=== PATIENT | male | born 1975 | race Caucasian/White ===

== ENCOUNTER 2017-05-12 06:49 | Day surgery (SDC) | payer OTHER ==
[~2017-05-12] VITALS: Ht 180.3 cm; Wt 136.7 kg
[~2017-05-12 06:49] MED LIST: ALBIPROI; ALBU90OI; ALBU90OI6 INH; ALBU90OI61 INH; AZIT250 PO; BUDE200IP INH; CYCL10 PO; DIAZ5 PO; DICL25ER PO; DULO60 PO; Desyrel50 MG; EPIN.3I IM; FLUSAL2505; FLUT44OIA; GABA300 PO; HYDACE10B MT; HYDACE10B PO; HYDACE5 PO; HYDACE7.5 PO; HYDMOR2 PO; HYDPAM50 PO; IBUP600 PO; IBUP800 PO; LORA1 PO; METR250 PO; NAPR500 PO; Naprosyn500 MG PO; OMEP10ER; OMEP20ER; OMEP20ER PO; OXYACE5T PO; PARO20 PO; PENVK500; PRED10 PO; PRED20 PO; PROM25 PO; PROM25S PR; Percocet 5-3251 EACH PO; RANI150; RANI150 PO; RXHYDMOR2 PO; RXOXYACE PO; RXPROM25 PO; TRAM50 PO; TRAZ150T57 PO; Veetids 500500 MG PO
[2017-05-12] MEDS ORDERED: SUBOXONE 12 MG1 EACH (07:22)
[2017-05-12] MEDS ORDERED: AMLO5 (07:22)
[2017-05-12] MEDS ORDERED: ESOM20 (07:22)
[2017-05-12] MEDS ORDERED: NORT75 (07:23)
[2017-05-12] MEDS ORDERED: Singulair5 MG (07:23)
== END 2017-05-12 08:54 | disposition home or self-care (01) ==
LOC: ORSCSDS 06:49
PROVIDERS: Internal Medicine Gastroenterology
PROC: 0DB68ZX Excision of Stomach, Via Natural or Artificial Opening Endoscopic, Diagnostic (ICD-10-PCS; principal; 2017-05-12 08:00)
DX: K21.9 Gastro-esophageal reflux disease without esophagitis (principal); K29.00 Acute gastritis without bleeding; K44.9 Diaphragmatic hernia without obstruction or gangrene; R11.10 Vomiting, unspecified; J45.909 Unspecified asthma, uncomplicated; I10 Essential (primary) hypertension; F32.9 Major depressive disorder, single episode, unspecified; E66.01 Morbid (severe) obesity due to excess calories; Z68.41 Body mass index [BMI] 40.0-44.9, adult; F17.210 Nicotine dependence, cigarettes, uncomplicated; Z79.899 Other long term (current) drug therapy
CPT/HCPCS: 88305; 88342; J0330; J1980; J2250; J2405; J7120

== ENCOUNTER 2017-07-25 17:31 | Emergency (ER) | payer OTHER ==
[~2017-07-25] VITALS: Ht 180.3 cm; Wt 136.1 kg
[~2017-07-25 17:31] MED LIST changes: +AMLO5; +ESOM20; +NORT75; +SUBOXONE 12 MG1 EACH; +Singulair5 MG
[2017-07-25 18:35] LABS: BASOPHILS PERCENT AUTO 1 % (0-2); EOSINOPHILS ABSOLUTE AUTO 0.46 K/mm3 (0.00-0.68); EOSINOPHILS PERCENT AUTO 5 % (0-6); Hematocrit 36.4 % (37.0-53.0); Hemoglobin 12.1 g/dL (13.5-17.5); IMMATURE GRAN ABSOLUTE AUTO 0.04 K/mm3 (0.00-0.10); IMMATURE GRAN PERCENT AUTO 0 % (0-1); LYMPHOCYTES ABSOLUTE AUTO 2.87 K/mm3 (0.84-5.20); LYMPHOCYTES PERCENT AUTO 29 % (21-46); MONOCYTES ABSOLUTE AUTO 0.98 K/mm3 (0.16-1.47); MONOCYTES PERCENT AUTO 10 % (4-13); Mean Corpuscular HGB Conc 33.2 g/dL (31.5-36.5); Mean Corpuscular Volume 90 fL (80-100); Mean Platelet Volume 9.7 fL (9.1-12.4); NEUTROPHILS ABSOLUTE AUTO 5.62 K/mm3 (1.96-9.15); NEUTROPHILS PERCENT AUTO 56 % (41-73); Platelet Count 259 K/mm3 (150-400); RDW Coefficient Variation 12.4 % (11.7-14.2); RDW Standard Deviation 40.8 fL (35.1-46.3); Red Blood Cell Count 4.04 M/mm3 (4.30-5.90); White Blood Cell Count 10.07 K/mm3 (4.00-11.30)
[2017-07-25 18:56] LABS: Alanine Aminotransfer (ALT/SGP 28 U/L (12-78); Albumin, Blood 3.9 g/dL (3.4-5.0); Albumin/Globulin Ratio 1.1 (0.8-1.8); Alk Phos 61 U/L (50-136); Anion Gap 8 mmol/L (6-16); Aspartate Aminotrans (AST/SGOT 22 U/L (12-37); Bilirubin, Total 0.5 mg/dL (0.1-1.0); Blood Urea Nitrogen 11 mg/dL (8-24); Bun/Creatinine Ratio 12.2 (12.0-20.0); CO2, Blood 28 mmol/L (21-32); Calcium, Blood 8.8 mg/dL (8.5-10.1); Chloride, Blood 105 mmol/L (98-108); Globulin, Blood 3.4 g/dL (2.2-4.0); Glomerular Filtration Rate >60 (60-); Glucose, Blood 101 mg/dL (70-99); Potassium, Blood 4.1 mmol/L (3.5-5.5); Sodium, Blood 141 mmol/L (136-145); Total Protein, Blood 7.3 g/dL (6.4-8.2)
[2017-07-25] MEDS ORDERED: Lasix20 MG PO (19:05)
== END 2017-07-25 19:15 | disposition home or self-care (01) ==
LOC: ER 17:31
PROVIDERS: Emergency Medicine
DX: R60.0 Localized edema (principal); J45.909 Unspecified asthma, uncomplicated; F17.200 Nicotine dependence, unspecified, uncomplicated; Z91.030 Bee allergy status; Z79.899 Other long term (current) drug therapy; Z79.51 Long term (current) use of inhaled steroids
CPT/HCPCS: 36415; 71046; 80053; 85025; 93005; 93010; 99283

== ENCOUNTER 2019-03-24 17:55 | Emergency (ER) | payer SELFPAY ==
[~2019-03-24] VITALS: Ht 180.3 cm; Wt 122.5 kg
[~2019-03-24 17:55] MED LIST changes: +Lasix20 MG PO
[2019-03-24 18:59] LABS: BASOPHILS ABSOLUTE AUTO 0.08 K/mm3 (0.00-0.23); BASOPHILS PERCENT AUTO 1 % (0-2); EOSINOPHILS ABSOLUTE AUTO 0.19 K/mm3 (0.00-0.68); EOSINOPHILS PERCENT AUTO 1 % (0-6); Hematocrit 42.8 % (37.0-53.0); Hemoglobin 14.6 g/dL (13.5-17.5); IMMATURE GRAN ABSOLUTE AUTO 0.05 K/mm3 (0.00-0.10); IMMATURE GRAN PERCENT AUTO 0 % (0-1); LYMPHOCYTES PERCENT AUTO 20 % (21-46); MONOCYTES ABSOLUTE AUTO 0.88 K/mm3 (0.16-1.47); MONOCYTES PERCENT AUTO 6 % (4-13); Mean Corpuscular HGB 31.2 pg (26.0-34.0); Mean Corpuscular HGB Conc 34.1 g/dL (31.5-36.5); Mean Corpuscular Volume 92 fL (80-100); Mean Platelet Volume 9.9 fL (9.1-12.4); NEUTROPHILS ABSOLUTE AUTO 10.42 K/mm3 (1.96-9.15); NEUTROPHILS PERCENT AUTO 72 % (41-73); Platelet Count 279 K/mm3 (150-400); RDW Coefficient Variation 12.7 % (11.7-14.2); RDW Standard Deviation 42.7 fL (35.1-46.3); Red Blood Cell Count 4.68 M/mm3 (4.30-5.90); White Blood Cell Count 14.52 K/mm3 (4.00-11.30)
[2019-03-24 19:18] LABS: Alanine Aminotransfer (ALT/SGP 27 U/L (12-78); Albumin, Blood 4.8 g/dL (3.4-5.0); Albumin/Globulin Ratio 1.4 (0.8-1.8); Alk Phos 64 U/L (50-136); Anion Gap 8 mmol/L (6-16); Aspartate Aminotrans (AST/SGOT 15 U/L (12-37); Bilirubin, Total 0.4 mg/dL (0.1-1.0); Blood Urea Nitrogen 23 mg/dL (8-24); Bun/Creatinine Ratio 22.1 (12.0-20.0); CO2, Blood 23 mmol/L (21-32); Chloride, Blood 108 mmol/L (98-108); Creatinine, Blood 1.04 mg/dL (0.60-1.20); Globulin, Blood 3.5 g/dL (2.2-4.0); Glomerular Filtration Rate >60 (60-); Glucose, Blood 107 mg/dL (70-99); Potassium, Blood 4.3 mmol/L (3.5-5.5); Sodium, Blood 139 mmol/L (136-145); Total Protein, Blood 8.3 g/dL (6.4-8.2)
[2019-03-24 20:11] LABS: Source, Urine Clean Catch
[2019-03-24 20:21] LABS: Bilirubin, Urine Neg (Neg); Blood, Urine 2+ (Neg); Glucose Qualitative, Urine Neg (Neg); Ketones, Urine 2+ (Neg); Leukocyte Esterase, Urine Neg (Neg); Nitrite, Urine Neg (Neg); Protein, Urine Neg (Neg); Specific Gravity, Urine 1.025 (1.003-1.022); Urobilinogen, Urine NORM (Normal)
[2019-03-24 20:32] LABS: Appearance, Urine Clear (Clear); Color, Urine Yellow (P-Yellow); Red Blood Cells, Urine 0-2 /hpf (0-2); White Blood Cells, Urine Rare /hpf (0-5)
[2019-03-24 20:33] LABS: Amorphous Light (0-Heavy); Bacteria Rare /hpf; Mucus Light (0-Heavy); Squamous Epithelial Cells Few /hpf (Few)
[2019-03-24] MEDS ORDERED: KETO10 PO (20:46)
[2019-03-24] MEDS ORDERED: Flomax0.4 MG PO (20:46)
== END 2019-03-24 21:13 | disposition home or self-care (01) ==
LOC: ER 17:55
PROVIDERS: Physician Assistant
DX: N13.2 Hydronephrosis with renal and ureteral calculous obstruction (principal); J45.909 Unspecified asthma, uncomplicated; I10 Essential (primary) hypertension; Z91.030 Bee allergy status; Z79.899 Other long term (current) drug therapy; F17.210 Nicotine dependence, cigarettes, uncomplicated
CPT/HCPCS: 36415; 74176; 80053; 81001; 83690; 85025; 96361; 96374; 96375; 99284-25; J1885; J2405; J7120

== ENCOUNTER 2023-05-13 22:28 | Emergency (ER) | payer SELFPAY ==
[~2023-05-13] VITALS: Ht 188 cm; Wt 117.9 kg
[~2023-05-13 22:28] MED LIST changes: +Flomax0.4 MG PO; +KETO10 PO
[2023-05-13 23:35] LABS: Influenza A, PCR NEGATIVE (NEGATIVE); Influenza B, PCR NEGATIVE (NEGATIVE); Resp Syncytial Virus, PCR NEGATIVE (NEGATIVE)
[2023-05-13 23:36] LABS: SARS-Cov-2 (COVID-19) PCR, MMC POSITIVE (NEGATIVE)
[2023-05-14] MEDS ORDERED: NS 1,000 ML IV SCH (01:35)
[2023-05-14] MEDS ORDERED: Ketorolac Tromethamine 30mg Vial IV ONE (01:40)
[2023-05-14] MEDS ORDERED: Azithromycin 500 MG in NS 250 ML IV ONE (01:45)
[2023-05-14 02:03] LABS: Albumin, Blood 2.9 g/dL (3.4-5.0); Albumin/Globulin Ratio 0.5 (0.8-1.8); Bilirubin, Total 0.3 mg/dL (0.1-1.0); Bun/Creatinine Ratio 28.5 (12.0-20.0); Calcium, Blood 9.3 mg/dL (8.5-10.1); Creatinine, Blood 1.44 mg/dL (0.60-1.20); Globulin, Blood 5.4 g/dL (2.2-4.0); Potassium, Blood 3.4 mmol/L (3.5-5.5); Total Protein, Blood 8.3 g/dL (6.4-8.2)
[2023-05-14 02:10] LABS: BASOPHILS ABSOLUTE AUTO 0.04 K/mm3 (0.00-0.23); BASOPHILS PERCENT AUTO 0 % (0-2); EOSINOPHILS ABSOLUTE AUTO 0.08 K/mm3 (0.00-0.68); EOSINOPHILS PERCENT AUTO 1 % (0-6); Hematocrit 32.8 % (37.0-53.0); Hemoglobin 10.7 g/dL (13.5-17.5); IMMATURE GRAN PERCENT AUTO 1 % (0-1); LYMPHOCYTES ABSOLUTE AUTO 1.58 K/mm3 (0.84-5.20); LYMPHOCYTES PERCENT AUTO 9 % (21-46); MONOCYTES ABSOLUTE AUTO 1.68 K/mm3 (0.16-1.47); MONOCYTES PERCENT AUTO 10 % (4-13); Mean Corpuscular HGB 29.4 pg (26.0-34.0); Mean Corpuscular HGB Conc 32.6 g/dL (31.5-36.5); Mean Corpuscular Volume 90 fL (80-100); Mean Platelet Volume 9.4 fL (9.1-12.4); NEUTROPHILS ABSOLUTE AUTO 14.15 K/mm3 (1.96-9.15); NEUTROPHILS PERCENT AUTO 80 % (41-73); Platelet Count 535 K/mm3 (150-400); RDW Coefficient Variation 13.3 % (11.7-14.2); RDW Standard Deviation 44.6 fL (35.1-46.3); Red Blood Cell Count 3.64 M/mm3 (4.30-5.90); White Blood Cell Count 17.63 K/mm3 (4.00-11.30)
[2023-05-14] MEDS ORDERED: AZIT250 PO (04:38)
[2023-05-14 04:46] VITALS: BP 134/85
== END 2023-05-14 04:46 | disposition home or self-care (01) ==
LOC: ER 22:28
PROVIDERS: Emergency Medicine; Physician Assistant
DX: U07.1 COVID-19 (principal); J12.82 Pneumonia due to coronavirus disease 2019; E86.0 Dehydration; R91.1 Solitary pulmonary nodule; Z68.33 Body mass index [BMI] 33.0-33.9, adult; J45.909 Unspecified asthma, uncomplicated; I10 Essential (primary) hypertension; F17.210 Nicotine dependence, cigarettes, uncomplicated; Z79.899 Other long term (current) drug therapy; Z91.030 Bee allergy status
CPT/HCPCS: 0241U; 71046; 71260; 80053; 83605; 84484; 85025; 85379; 93005; 93010; 96365-59; 96375-59; 99285-25; J0456; J1885; J7030; J7050; Q9967

== ENCOUNTER 2024-09-13 09:47 | Emergency (ER) | payer OTHER ==
[~2024-09-13] VITALS: Ht 180.3 cm; Wt 145.2 kg
[~2024-09-13 09:47] MED LIST changes: +BUPRENORPHIN-N1 EAC5; +LOSARTAN-HCTZ1 EACH PO; +MAGNESIUM CITR100 MG PO; +Nortriptyline H50 MG PO; +OLME20 PO; +VALSARTAN HCTZ PO
[2024-09-13 11:31] LABS: Source, Urine Clean Catch
[2024-09-13 11:40] LABS: BASOPHILS ABSOLUTE AUTO 0.10 K/mm3 (0.00-0.23); BASOPHILS PERCENT AUTO 1 % (0-2); EOSINOPHILS ABSOLUTE AUTO 0.13 K/mm3 (0.00-0.68); EOSINOPHILS PERCENT AUTO 2 % (0-6); Hematocrit 42.0 % (37.0-53.0); Hemoglobin 13.8 g/dL (13.5-17.5); IMMATURE GRAN ABSOLUTE AUTO 0.01 K/mm3 (0.00-0.10); IMMATURE GRAN PERCENT AUTO 0 % (0-1); LYMPHOCYTES ABSOLUTE AUTO 2.29 K/mm3 (0.84-5.20); LYMPHOCYTES PERCENT AUTO 27 % (21-46); MONOCYTES ABSOLUTE AUTO 0.80 K/mm3 (0.16-1.47); MONOCYTES PERCENT AUTO 10 % (4-13); Mean Corpuscular HGB Conc 32.9 g/dL (31.5-36.5); Mean Corpuscular Volume 93 fL (80-100); NEUTROPHILS ABSOLUTE AUTO 5.07 K/mm3 (1.96-9.15); NEUTROPHILS PERCENT AUTO 60 % (41-73); NRBC ABSOLUTE 0.00 K/mm3 (0.00-0.02); NRBC Auto 0.0 /100 WBC (0.0-0.2); Platelet Count 263 K/mm3 (150-400); RDW Coefficient Variation 12.7 % (11.7-14.2); RDW Standard Deviation 43.5 fL (35.1-46.3)
[2024-09-13 11:40] LABS: Bilirubin, Urine Neg (Neg); Color, Urine Yellow (P-Yellow); Glucose Qualitative, Urine Neg (Neg); Ketones, Urine Neg (Neg); Leukocyte Esterase, Urine Neg (Neg); Protein, Urine 2+ (Neg); Specific Gravity, Urine 1.010 (1.003-1.022); Urobilinogen, Urine NORM (Normal)
[2024-09-13 11:47] LABS: Red Blood Cells, Urine 0-2 /hpf (0-2); White Blood Cells, Urine 0-2 /hpf (0-5)
[2024-09-13 12:26] LABS: Alanine Aminotransfer (ALT/SGP 40.0 U/L (12-78); Albumin, Blood 4.2 g/dL (3.4-5.0); Albumin/Globulin Ratio 1.2 (0.8-1.8); Anion Gap 6.0 mmol/L (3-11); Aspartate Aminotrans (AST/SGOT 28.0 U/L (12-37); Bilirubin, Total 0.4 mg/dL (0.1-1.0); Blood Urea Nitrogen 19.0 mg/dL (8-24); CO2, Blood 30.0 mmol/L (21-32); Calcium, Blood 9.0 mg/dL (8.5-10.1); Chloride, Blood 102.0 mmol/L (98-108); Creatinine, Blood 1.02 mg/dL (0.60-1.20); Globulin, Blood 3.6 g/dL (2.2-4.0); Glucose, Blood 117.0 mg/dL (70-99); Potassium, Blood 3.6 mmol/L (3.5-5.5); Sodium, Blood 134.0 mmol/L (136-145); Total Protein, Blood 7.8 g/dL (6.4-8.2)
[2024-09-13 13:49] VITALS: BP 148/108
[2024-09-13] MEDS ORDERED: Ondansetron HCl 2 MG / ML 2ML Vial IV ONE (14:30)
[2024-09-13] MEDS ORDERED: Ketorolac Tromethamine 30mg Vial IV ONE (14:30)
[2024-09-13] MEDS ORDERED: ONDA4ODT MM (14:31)
== END 2024-09-13 14:56 | disposition home or self-care (01) ==
LOC: ER 09:47
PROVIDERS: Student in an Organized Health Care Education/Training Program
DX: K43.9 Ventral hernia without obstruction or gangrene (principal); K59.03 Drug induced constipation; T40.605A Adverse effect of unspecified narcotics, initial encounter; Z91.030 Bee allergy status; Z79.899 Other long term (current) drug therapy; I10 Essential (primary) hypertension; E78.5 Hyperlipidemia, unspecified; J44.9 Chronic obstructive pulmonary disease, unspecified; F17.290 Nicotine dependence, other tobacco product, uncomplicated
CPT/HCPCS: 71046; 74177; 80053; 81001; 83690; 84484; 85025; 93005; 93010; 96374-59; 96375; 99284-25; J1885; J2405; Q9967